=== PATIENT | female | born 2000 | race Asian ===

== ENCOUNTER → 2022-12-27 12:45 | Outpatient (CLI) | payer OTHER, SELFPAY | PROVIDERS: PCP Physician Assistant; Visit Provider Physician Assistant | DX: L02.91 Cutaneous abscess, unspecified (principal) | CPT/HCPCS: 87070; 87075; 87077; 87147; 87186; 87205 ==

== ENCOUNTER 2022-12-31 23:44 | Emergency (ER) | payer OTHER, SELFPAY ==
[2023-01-01] VITALS: BP 118/67; PULSE 93; RESP 18; TEMP 36.9; O2SAT 94; BMI 34.3
--- NOTE | 2023-01-01 00:06 | ED.SKABFB ---
HPI - Skin/Abscess/Foreign Bdy General Chief complaint: Skin/Abscess/Foreign Body Stated complaint: sore in groin pt states mrsa Time Seen by Provider: 12/31/22 23:48 Source: patient Mode of arrival: Ambulatory History of Present Illness HPI narrative: Patient is a 22-year-old female who is here for evaluation of potentially worsening infection in her right groin area. She was seen a couple days ago after the area started to drain. She states that it was never incised. States that it has stopped draining. She is currently on doxycycline. She is here because she states that the culture came back positive for MRSA. She then stated that over the past day or so she is felt somewhat feverish. She denies any productive cough. No sore throat. No urinary symptoms. No lesions anywhere else on her body. She is never had an abscess in the past. Related Data Home Medications Medication Instructions Recorded Confirmed brexpiprazole 2 mg tablet (Rexulti) 2 mg PO DAILY 12/25/22 12/27/22 buspirone 15 mg tablet 15 mg PO ONCE 12/25/22 12/27/22 methimazole 20 mg tablet 20 mg PO DAILY 12/25/22 12/27/22 Previous Rx's Medication Instructions Recorded doxycycline hyclate 100 mg tablet 100 mg PO BID 10 days #20 tabs 12/25/22 Allergies Allergy/AdvReac Type Severity Reaction Status Date / Time No Known Drug Allergies Allergy Unverified 12/25/22 11:10 Review of Systems Constitutional Constitutional: Reports system reviewed and no additional complaints, except as documented Gastrointestinal Gastrointestinal: Reports system reviewed and no additional complaints, except as documented Genitourinary Genitourinary: Reports system reviewed and no additional complaints, except as documented Integumentary/Breasts Skin/Breast: Reports system reviewed and no additional complaints, except as documented Patient History Medical History ADHD (~2007) History of bipolar disorder (~2019) Hyperthyroidism (~2019) Schizophrenia (~2021) Substance abuse (~2019) Social History Smoking Status: Current every day smoker Smoking Status: Current every day smoker Exam Initial Vital Signs Initial Vital Signs: Vital Signs Temperature 98.4 F 01/01/23 00:00 Pulse Rate 93 H 01/01/23 00:00 Respiratory Rate 18 01/01/23 00:00 Blood Pressure 118/67 01/01/23 00:00 Pulse Oximetry 94 01/01/23 00:00 Oxygen Delivery Method Room Air 01/01/23 00:00 Const General: cooperative, comfortable and No ill appearing [facility] Head: normal to inspection and normocephalic Resp Effort & Inspection: normal respiratory effort Cardio Rate: regular rate Skin Other: There is a area of induration in her right suprapubic region. There is very minimal surrounding erythema. The small ulceration in the center this without any drainage. Extrem General: normal to inspection Course Vital Signs Vital signs: Vital Signs - 8 hr 01/01/23 00:00 Temperature 98.4 F Pulse Rate 93 H Respiratory Rate 18 Blood Pressure 118/67 Pulse Oximetry 94 Oxygen Delivery Method Room Air MDM - Skin/Abscess/Foreign Bdy MDM Narrative Medical decision making narrative: Bedside ultrasound shows no remaining abscess however given her history I suspect that there was 1 there at 1 point that has drained on its own. No indication for a repeat incision and drainage. There is minimal surrounding erythema. She is on appropriate antibiotics. She is no other potential source of an infection on her exam. Doxycycline would cover any respiratory illness or potentially any urinary source or other skin source but these do not seem to be present. She is afebrile. Has not tachycardic. No indication to switch any antibiotics. No indication for lab work. We discussed care instructions on how to take care of it at home. She can use potable tap water or bottled water and just regular soap to keep the area clean. She does not need sterile water or saline. Discharge Plan Departure Patient Disposition: Home Clinical Impression: Abscess Instructions: DI for Incision and Drainage of a Skin Abscess Activity Restrictions/Additional Instructions: The area where the abscess once was appears to be well. There was no signs of a reoccurrence of the infection. The skin around the area looks well. You only need to cover with a bandage as needed to help with any drainage. You can keep it uncovered if you wish. You can shower like normal. As far as keeping it clean you can use bottled water or portable tap water if this is available. You can just use regular antibiotic soap. Continue to take the antibiotics as directed until they are gone. You were on an appropriate antibiotic. Be sure that you were taking this antibiotic with food. Prescriptions: No Action Rexulti 2 mg tablet 2 mg PO DAILY buspirone 15 mg tablet 15 mg PO ONCE methimazole 20 mg tablet 20 mg PO DAILY doxycycline hyclate 100 mg tablet 100 mg PO BID 10 Days Qty: 20 0RF Rx Instructions: Take with food (not dairy) and take with a full glass of water. Limit sun exposure. Referrals: Sandi Fulton PA-C [Primary Care Provider] - Stand Alone Forms: Patient Portal/API
== END 2023-01-01 00:11 | disposition home or self-care (01) ==
PROVIDERS: Emergency Provider Emergency Medicine; PCP Physician Assistant
DX: L02.214 Cutaneous abscess of groin (principal)
CPT/HCPCS: 99281